=== PATIENT | female | born 1960 | race Caucasian/White ===

== ENCOUNTER 2019-02-20 12:50 | Inpatient (IN) | payer OTHER ==
[~2019-02-20] VITALS: Ht 172.7 cm; Wt 90.3 kg
--- NOTE | 2019-02-20 13:05 | NUR ---
PATIENT BIB [facility] FROM HOME,C/O FLU-LIKE SX,FEVER,VOMITING. PATIENT A&O X 3, NO ACUTE DISTRESS.
--- NOTE | 2019-02-20 13:15 | NUR ---
RAPID INFLUENZA SWAB OBTAINED AND SENT TO LAB
[2019-02-20] MEDS ORDERED: KETOROLAC TROMETHAMINE INJ 30 MG/ML VIAL IV ONE (13:30)
[2019-02-20] MEDS ORDERED: ONDANSETRON HCL/PF 4 MG/2 ML VIAL IVP ONE (13:30)
[2019-02-20] MEDS ORDERED: DILTIAZEM HCL 25 MG IV IV ONE (13:30)
[2019-02-20] MEDS ORDERED: IV NS 0.9% 1,000 ML BAG IV ONE ×3 (13:30→16:00)
[2019-02-20 13:35] LABS: BASOPHILS % (AUTO) 0.4 % (0.0-2.0); EOSINOPHILS % (AUTO) 0.1 % (0.0-6.0); HEMATOCRIT 42 % (33-45); HEMOGLOBIN 14.1 g/dL (11.5-14.8); LYMPHOCYTES # (AUTO) 0.5 /CMM (0.8-4.8); LYMPHOCYTES % (AUTO) 4.4 % (20.0-44.0); MEAN CORPUSCULAR HGB CONC 34 g/dl (31.0-36.0); MEAN CORPUSCULAR VOLUME 84 fL (82-100); MONOCYTES # (AUTO) 1.3 /CMM (0.1-1.30); MONOCYTES % (AUTO) 10.5 % (2.0-12.0); NEUTROPHILS # (AUTO) 10.3 /CMM (1.8-8.9); NEUTROPHILS % (AUTO) 84.6 % (43.0-81.0); PLATELET COUNT (AUTO) 251 /CMM (150-450); RED BLOOD CELL COUNT(AUTO) 5.01 MIL/uL (4.0-5.2); WHITE BLOOD COUNT (AUTO) 12.2 K/uL (4.3-11.0)
[2019-02-20] MEDS ORDERED: KETOROLAC TROMETHAMINE 15 MG/ML VIAL ONE (13:42)
[2019-02-20] MEDS ORDERED: ONDANSETRON HCL/PF 4 MG/2 ML VIAL ONE (13:42)
[2019-02-20] MEDS ORDERED: ASPI-1152 PO (13:43)
[2019-02-20] MEDS ORDERED: ATEN25TA PO (13:43)
[2019-02-20] MEDS ORDERED: DILTIAZEM HCL 25 MG IV ONE (13:43)
[2019-02-20] MEDS ORDERED: LISI40TA4 PO (13:43)
[2019-02-20 13:47] LABS: ALANINE AMINOTRANSFERASE 35 U/L (12-78); ALBUMIN 2.1 g/dL (3.4-5.0); ALKALINE PHOSPHATASE 220 U/L (46-116); ASPARTATE AMINOTRANSFERASE 25 U/L (15-37); BILIRUBIN,DIRECT 0.4 mg/dL (0.0-0.2); BILIRUBIN,TOTAL 0.7 mg/dL (0.2-1.0); CALCIUM, SERUM 8.4 mg/dL (8.5-10.1); CARBON DIOXIDE 27 mmol/L (21-32); CHLORIDE 95 mmol/L (98-107); CREATININE 1.6 mg/dL (0.6-1.3); LIPASE 86 U/L (73-393); POTASSIUM 3.8 mmol/L (3.5-5.1); SODIUM SERUM 131 mmol/L (136-145); TOTAL PROTEIN, SERUM 6.1 g/dL (6.4-8.2); UREA NITROGEN, BLOOD 28 mg/dL (7-18)
[2019-02-20 13:49] LABS: GLUCOSE 478 mg/dL (74-106)
[2019-02-20] MEDS ORDERED: INSULIN REGULAR, HUMAN 100 UNIT/ML 10 ML VIAL ONE (14:24)
[2019-02-20] MEDS ORDERED: INSULIN REGULAR, HUMAN 100 UNIT/ML 10 ML VIAL SQ ONE ×2 (14:30→16:00)
[2019-02-20 14:53] LABS: APPEARANCE,URINE Clear (CLEAR); BILIRUBIN,URINE MODERATE (NEGATIVE); BLOOD, URINE Large Ery/uL (NEGATIVE); COLOR,URINE Yellow (YELLOW); KETONES,URINE Trace (NEGATIVE); LEUKOCYTE ESTERASE ,URINE Small (NEGATIVE); NITRITE, URINE Negative (NEGATIVE); PROTEIN,URINE >=300 mg/dl (NEGATIVE); UGLUCOSE >=1000 mg/dL (NEGATIVE)
[2019-02-20 15:00] LABS: BACTERIA,URINE 1+ /HPF (None Seen); SQUAMOUS EPITHELIAL CELL,UR Moderate /HPF (None Seen)
[2019-02-20] MEDS ORDERED: FUROSEMIDE 40 MG/4 ML VIAL IV ONE (15:30)
[2019-02-20] MEDS ORDERED: FUROSEMIDE 40 MG/4 ML VIAL ONE (15:46)
[2019-02-20] MEDS ORDERED: CEFTRIAXONE 1GM BAG (ER ONLY) 1 GM/50 ML PIGGYBACK IV ONE (16:00)
--- NOTE | 2019-02-20 16:18 | NUR ---
PATIENT PULLED IV OUT. IV TIP INTACT. PRESSURE DRESSING PLACED ON SITE. STARTED ANOTHER IV LINE ON LEFT AC g18
[2019-02-20] MEDS ORDERED: CEFTRIAXONE 1 G in IV D5W 50 ML IV ONE (16:30)
--- NOTE | 2019-02-20 16:32 | NUR ---
GOT BED 304-2
--- NOTE | 2019-02-20 16:43 | NUR ---
REPORT GIVEN TO KAREN HAIRSTON FOR GREY
--- NOTE | 2019-02-20 16:55 | NUR ---
RECHECKED FSBS WITH RESULT OF 411. DR JEFFERY AT BEDSIDE. NO NEW ORDERS AT THIS TIME. ER MADE AWARE WELL. NO NEW ORDERS AT THIS TIME
[2019-02-20] MEDS ORDERED: *INSULIN REGULAR(HUMULIN R)HUM 100 UNIT/ML VIAL SQ PRN (17:30)
[2019-02-20] MEDS ORDERED: DEXTROSE 50%-WATER 50 ML DISP.SYRIN IV PRN (17:30)
--- NOTE | 2019-02-20 18:13 | NUR ---
TRANSFERRED TO [facility] VIA ACLS PROTOCOL BY [facility] IN STABLE CONDITION. NO ACUTE DISTRESS. RECEIVING RN AT [facility]
--- NOTE | 2019-02-20 18:20 | NUR ---
MS RN RECEIVED A NEW ADMISSION FROM ER, 58 FEMALE,AWAKE,ALERT,ORIENTED X4,CAME IN W/ CC OF FLU LIKE SYMPTOMS,WEAKNESS FOR FEW DAYS.DX OF NEW ONSET A FIB, HYPERGLYCEMIA,NO DISTRESS NOTED, AFIB ON MONITOR AT 90'S TO 100'S, DENIES PAIN AT THIS TIME,ALL NEEDS ATTENDED.
[2019-02-20] MEDS ORDERED: ZOLPIDEM TARTRATE 5 MG TABLET PO PRN (18:30)
[2019-02-20] MEDS ORDERED: MAG HYDROX/AL HYDROX/SIMETH 30 ML UDC PO PRN (18:30)
[2019-02-20] MEDS ORDERED: MAGNESIUM HYDROXIDE 30 ML UDC PO PRN (18:30)
[2019-02-20] MEDS ORDERED: Z GUARD REMEDY 2 OZ OINT TP PRN (18:30)
[2019-02-20] MEDS ORDERED: HYDROCODONE/APAP 5/325MG 1 EACH TABLET PO PRN (18:30)
[2019-02-20] MEDS ORDERED: ACETAMINOPHEN 325 MG TABLET PO PRN (18:30)
[2019-02-20] MEDS ORDERED: ONDANSETRON HCL/PF 4 MG/2 ML VIAL IVP PRN (18:30)
--- NOTE | 2019-02-20 18:38 | NUR ---
MS RN ON BED, NO DISTRESS NOTED.
[2019-02-20] MEDS: IV NS 0.9% 1,000 ML IV PRN (18:57)
[2019-02-20] MEDS: INSULIN REGULAR, HUMAN 100 UNIT/ML 3 ML VIAL SQ PRN (18:58)
[2019-02-20] MEDS: BLOOD SUGAR DIAGNOSTIC 1 EACH STRIP IN SCH ×2 (19:01→22:25)
[2019-02-20 20:00] VITALS: BP 135/67
--- NOTE | 2019-02-20 20:00 | NUR ---
COMMERCIAL PROPERTY MANAGER NOTES RECEIVED PATIENT LYING ON BED, AWAKE ALERT ORIENTED X4, BASED FROM AM NURSE REPORT, PATIENT ARRIVED IN THE UNIT VIA GURNEY FROM ER AROUND 1800, PATIENT COMPLAINT OF GENERALIZED BODY WEAKNESS FOR 1 WEEK, INITIAL PHYSICAL ASSESSMENT CONDUCTED, SKIN IS INTACT, HOWEVER, NOTED WITH SWOLLEN SITE ON HER BACK ON THE SIDE, PATIENT REFUSED TO TAKE PHOTO OF THE SITE, WILL ENDORSE TO AM NURSE / STAFF TOMORROW FOR FURTHER ASSESSMENT. ORIENTED TO ROOM, UNIT AND THE USE OF CALL LIGHT FOR SAFETY. ALL NEEDS ATTENDED AND MET, KEEP CLEAN AND DRY. REPOSITIONED FOR COMFORT.
[2019-02-20 20:24] LABS: CALCIUM, SERUM 7.8 mg/dL (8.5-10.1); CREATININE 1.5 mg/dL (0.6-1.3); POTASSIUM 3.6 mmol/L (3.5-5.1)
[2019-02-21] VITALS: BP 130/69
[2019-02-21 04:00] VITALS: BP 140/72
[2019-02-21] MEDS: IV NS 0.9% 1,000 ML IV PRN ×2 (04:17→13:34)
[2019-02-21 06:52] LABS: BASOPHILS % (AUTO) 0.4 % (0.0-2.0); EOSINOPHILS % (AUTO) 0.3 % (0.0-6.0); HEMATOCRIT 38 % (33-45); HEMOGLOBIN 12.8 g/dL (11.5-14.8); LYMPHOCYTES % (AUTO) 8.6 % (20.0-44.0); MEAN CORPUSCULAR HGB CONC 34 g/dl (31.0-36.0); MEAN CORPUSCULAR VOLUME 83 fL (82-100); MONOCYTES # (AUTO) 1.3 /CMM (0.1-1.30); MONOCYTES % (AUTO) 11.1 % (2.0-12.0); NEUTROPHILS # (AUTO) 9.1 /CMM (1.8-8.9); NEUTROPHILS % (AUTO) 79.6 % (43.0-81.0); PLATELET COUNT (AUTO) 264 /CMM (150-450); RED BLOOD CELL COUNT(AUTO) 4.61 MIL/uL (4.0-5.2); WHITE BLOOD COUNT (AUTO) 11.4 K/uL (4.3-11.0)
[2019-02-21] MEDS: BLOOD SUGAR DIAGNOSTIC 1 EACH STRIP IN SCH ×4 (07:02→21:49)
[2019-02-21 07:10] LABS: CALCIUM, SERUM 7.8 mg/dL (8.5-10.1); CREATININE 1.1 mg/dL (0.6-1.3); MAGNESIUM 1.7 mg/dL (1.8-2.4); PHOSPHORUS 2.4 mg/dL (2.5-4.9); POTASSIUM 3.3 mmol/L (3.5-5.1)
[2019-02-21 08:00] VITALS: BP 125/62
--- NOTE | 2019-02-21 08:00 | NUR ---
DOCTOR OF DENTAL SURGERY NOTES RECEIVED PATIENT COMFORTABLY SLEEPING BUT AROUSABLE ON BED, ORIENTED X4, SKIN IS INTACT, HOWEVER, NOTED WITH SWOLLEN SITE ON HER BACK ON THE SIDE, PATIENT REFUSED TO TAKE PHOTO OF THE SITE, ORIENTED TO ROOM, UNIT AND THE USE OF CALL LIGHT FOR SAFETY. NEEDS ATTENDED. KEEP CLEAN AND DRY. REPOSITIONED FOR COMFORT.CALL LIGHT PLACED WITHIN REACH.
[2019-02-21] MEDS ORDERED: POTASSIUM PHOSPHATE MM 15 MMOL in IV D5W 250 ML IV SCH (08:30)
[2019-02-21 08:48] LABS: ABG BASE EXCESS 0.2 mmol/L; ABG OXYGEN SATURATION 87.3 % (92.0-98.5); ABG PCO2 43.6 mmHg (35.0-45.0); ABG PH 7.384 (7.350-7.450); ABG PO2 53.3 mmHg (75.0-100.0); AaDO2 44.2 mmHg; COHb 1.2 % (0.5-1.5); MetHb 0.2 % (0.0-1.5); O2Hb 86.1 % (94.0-97.0); SITE, ABG Left Radial; VENT MODE, BG ROOM AIR
[2019-02-21] MEDS ORDERED: Magnesium 1GM/D5W 100ML PREMIX 100 ML IV SCH (08:59)
[2019-02-21] MEDS ORDERED: METFORMIN 500 MG TABLET PO SCH (09:00)
[2019-02-21] MEDS ORDERED: RIVAROXABAN 10 MG TABLET PO SCH (09:16)
[2019-02-21] MEDS: Magnesium 1GM/D5W 100ML PREMIX 100 ML IV SCH ×2 (09:57→11:09)
[2019-02-21] MEDS: POTASSIUM CHLORIDE 20 MEQ TAB.PRT.SR PO SCH ×3 (09:58→13:04)
[2019-02-21] MEDS: AMIODARONE HCL 200 MG TABLET PO SCH ×2 (09:58→17:12)
[2019-02-21] MEDS ORDERED: IOHEXOL-350 100 ML VIAL IV ONE (10:13)
[2019-02-21 10:37] LABS: BAND % (MANUAL) 9 % (0.0-5.0); EOSINOPHILS % (MANUAL) 1 % (0-4); LYMPHOCYTES % (MANUAL) 6 % (16-48); MONOCYTES % (MANUAL) 8 % (0-11.0); NEUTROPHILS % (MANUAL) 76 (42-76)
--- NOTE | 2019-02-21 10:42 | NUR ---
PT WENT BACK FROM CT PULMO ANGIO PROCEDURE
[2019-02-21] MEDS: POTASSIUM PHOSPHATE MM 7.5 MMOL in IV D5W 100 ML IV SCH ×2 (11:19→15:49)
[2019-02-21] MEDS: INSULIN REGULAR, HUMAN 100 UNIT/ML 3 ML VIAL SQ PRN ×3 (12:12→21:49)
[2019-02-21] MEDS: IPRATROPIUM NEB FS 0.5 MG/2.5 ML AMPUL.NEB NEB SCH ×4 (12:30→23:29)
[2019-02-21 16:00] VITALS: BP 145/67
[2019-02-21] MEDS ORDERED: CEFTRIAXONE 1 G in IV D5W 50 ML IV SCH (16:00)
--- NOTE | 2019-02-21 18:18 | NUR ---
PT LYING IN BED WITH NO C/O PAIN OR DISTRESS.WITH ONGOING IV KPHOS TO RFA AND ATB IV TO LAC INFUSING WELL.CALL LIGHT PLACED WITHIN REACH.
[2019-02-21 20:08] VITALS: BP 158/78
--- NOTE | 2019-02-21 21:55 | NUR ---
PATIENT'S IV ON RIGHT FA INFILTRATED, D/C'D, TIP INTACT. PATIENT REFUSED IVF. PATIENT IS BEEN DRINKING FLUIDS.
[2019-02-22] MEDS: IPRATROPIUM NEB FS 0.5 MG/2.5 ML AMPUL.NEB NEB SCH ×2 (03:30→07:35)
--- NOTE | 2019-02-22 03:51 | NUR ---
PT REFUSED, DOES NOT WANT TO BE WAKEN UP AFTER 12AM.
--- NOTE | 2019-02-22 05:12 | NUR ---
MS RN CLOSING NOTES: PATIENT IS RESTING COMFORTABLY IN BED. NO SOB NOTED. NO COMPLAIN OF PAIN. AMBULATORY. NO ACUTE EVENTS OVERNIGHT. SLEPT THROUGHOUT THE NIGHT. PATIENT IS LYING IN THE UNOCCUPIED BED NEXT TO HERS, ADVISED TO TRANSFER TO HER BED, REFUSED.CONCHITA PEACOCK MADE AWARE. CALL LIGHT GIVEN AND WITH THE PATIENT. BED IN LOW AND LOCKED POSITION.
--- NOTE | 2019-02-22 07:18 | NUR ---
PATIENT LEFT AMA AT 0710. CN MADONNA AWARE. IV REMOVED, TIP INTACT, PRESSURE APPLIED. AND COVERED. NO BLEEDING NOTED. PATIENT SIGNED THE FORM AND ATTACHED TO THE CHART. WILL DO THE INCIDENT REPORT.
--- NOTE | 2019-02-22 07:41 | NUR ---
PATEL ANGULO INFORMED.
[2019-02-22 07:48] LABS: BASOPHILS % (AUTO) 0.5 % (0.0-2.0); EOSINOPHILS % (AUTO) 0.6 % (0.0-6.0); HEMATOCRIT 39 % (33-45); HEMOGLOBIN 13.3 g/dL (11.5-14.8); LYMPHOCYTES # (AUTO) 0.9 /CMM (0.8-4.8); LYMPHOCYTES % (AUTO) 8.7 % (20.0-44.0); MEAN CORPUSCULAR HGB CONC 34 g/dl (31.0-36.0); MEAN CORPUSCULAR VOLUME 83 fL (82-100); MONOCYTES # (AUTO) 1.1 /CMM (0.1-1.30); MONOCYTES % (AUTO) 10.1 % (2.0-12.0); NEUTROPHILS # (AUTO) 8.5 /CMM (1.8-8.9); NEUTROPHILS % (AUTO) 80.1 % (43.0-81.0); PLATELET COUNT (AUTO) 284 /CMM (150-450); RED BLOOD CELL COUNT(AUTO) 4.75 MIL/uL (4.0-5.2); WHITE BLOOD COUNT (AUTO) 10.6 K/uL (4.3-11.0)
[2019-02-22 08:42] LABS: ALANINE AMINOTRANSFERASE 32 U/L (12-78); ALBUMIN 1.8 g/dL (3.4-5.0); ALKALINE PHOSPHATASE 219 U/L (46-116); ASPARTATE AMINOTRANSFERASE 22 U/L (15-37); BILIRUBIN,TOTAL 0.3 mg/dL (0.2-1.0); CALCIUM, SERUM 8.3 mg/dL (8.5-10.1); CARBON DIOXIDE 25 mmol/L (21-32); CHLORIDE 104 mmol/L (98-107); GLUCOSE 154 mg/dL (74-106); MAGNESIUM 1.8 mg/dL (1.8-2.4); PHOSPHORUS 3.4 mg/dL (2.5-4.9); POTASSIUM 3.9 mmol/L (3.5-5.1); SODIUM SERUM 139 mmol/L (136-145); TOTAL PROTEIN, SERUM 5.9 g/dL (6.4-8.2); UREA NITROGEN, BLOOD 18 mg/dL (7-18)
== END 2019-02-22 07:10 | disposition left against medical advice (07) | DRG 420 ==
LOC: ER 12:57 → TELE 16:55 → MED 02-21 09:00
PROVIDERS: ADMIT Internal Medicine; ATTEND Internal Medicine
DX: E11.65 Type 2 diabetes mellitus with hyperglycemia (principal); N17.0 Acute kidney failure with tubular necrosis; D68.59 Other primary thrombophilia; I48.91 Unspecified atrial fibrillation; E44.1 Mild protein-calorie malnutrition; I27.20 Pulmonary hypertension, unspecified; E86.0 Dehydration; J45.901 Unspecified asthma with (acute) exacerbation; E87.1 Hypo-osmolality and hyponatremia; N39.0 Urinary tract infection, site not specified; D17.9 Benign lipomatous neoplasm, unspecified; Z79.82 Long term (current) use of aspirin; Z79.899 Other long term (current) drug therapy; F17.200 Nicotine dependence, unspecified, uncomplicated; I25.10 Atherosclerotic heart disease of native coronary artery without angina pectoris; R09.02 Hypoxemia; I10 Essential (primary) hypertension
CPT/HCPCS: 36415; 36600; 71045-TC; 80048-TC; 80053-TC; 80061-TC; 80076-TC; 81000-TC; 82803-TC; 82962-TC; 83605-TC; 83690-TC; 83735-TC; 83880; 84100-TC; 84484-TC; 85025-TC; 87040-TC; 87081-TC; 87086-TC; 87186-TC; 87400; 93307-TC; 93970-TC; G0378; J0696; J1815; J1885; J1940; J2405; J3475; J3490; J7030; J7060; Q9967